=== PATIENT | male | born 1955 ===

== ENCOUNTER 2024-06-26 17:37 | Emergency (ER) | payer OTHER ==
[~2024-06-26] VITALS: Ht 170.2 cm; Wt 54.0 kg
[2024-06-26 17:42] VITALS: BP 217/101; PULSE 100; RESP 18; TEMP 98.4; O2SAT 99
[2024-06-26] MEDS ORDERED: ASPI-1444 PO (17:52)
[2024-06-26] MEDS ORDERED: FINA-27 PO (17:52)
[2024-06-26] MEDS ORDERED: ATOR40TA28 PO (17:52)
[2024-06-26] MEDS ORDERED: METF-1211 PO (17:52)
[2024-06-26] MEDS ORDERED: LISI-892 PO (17:52)
== END 2024-06-26 23:05 | disposition left against medical advice (07) ==
LOC: EMS 17:37
DX: R04.0 Epistaxis (principal); Z53.21 Procedure and treatment not carried out due to patient leaving prior to being seen by health care provider
CPT/HCPCS: 82962